=== PATIENT | female | born 1960 | race Caucasian/White ===

== ENCOUNTER 2016-05-09 08:55 | Day surgery (SDC) | payer OTHER ==
[~2016-05-09] VITALS: Ht 160 cm; Wt 122.5 kg
[~2016-05-09 08:55] MED LIST: ALBUTEROL SULF8.5 GM IH; AMLODIPINE-BEN1 EACH PO; Advair HFA 115/21 IH; DULERA 100 MCG/13 GM IH; ELIQUIS5 MG PO; FLEXERIL10 MG PO; METOPROLOL TART25 MG PO; PREDNISONE10 MG PO; Protonix PO; Zithromax PO; predniSONE PO
== END 2016-05-09 12:20 | disposition home or self-care (01) ==
LOC: CATH 08:55
PROC: 5A2204Z Restoration of Cardiac Rhythm, Single (ICD-10-PCS; principal; 2016-05-09)
DX: I48.1 Persistent atrial fibrillation (principal); I10 Essential (primary) hypertension; M10.9 Gout, unspecified; J45.909 Unspecified asthma, uncomplicated
CPT/HCPCS: 93005

== ENCOUNTER 2016-05-12 09:34 | Emergency (ER) | payer OTHER ==
[~2016-05-12] VITALS: Ht 160 cm; Wt 124.6 kg
[2016-05-12] MEDS ORDERED: TYLENOL WITH C1 EACH PO (11:12)
[2016-05-12 11:34] VITALS: BP 143/74
== END 2016-05-12 11:53 | disposition home or self-care (01) ==
LOC: EME 09:34
DX: S80.01XA Contusion of right knee, initial encounter (principal); S93.402A Sprain of unspecified ligament of left ankle, initial encounter; W01.0XXA Fall on same level from slipping, tripping and stumbling without subsequent striking against object, initial encounter; X50.1XXA Overexertion from prolonged static or awkward postures, initial encounter; Y93.01 Activity, walking, marching and hiking; I48.91 Unspecified atrial fibrillation; Z79.01 Long term (current) use of anticoagulants; I10 Essential (primary) hypertension; J45.909 Unspecified asthma, uncomplicated
CPT/HCPCS: 73564; 73610; 99281; 99284